=== PATIENT | female | born 1980 | race Hispanic/Latino ===

== ENCOUNTER 2019-04-11 15:45 | Inpatient (IN) | payer OTHER ==
[2019-04-11 16:49] LABS: #Lymphocytes 2.9 thou/uL (1.20-3.40); #Monocytes 0.6 thou/uL (0.11-0.59); #Neutrophils 8.4 thou/uL (1.40-6.50); %Basophils 0.3 % (0.0-1.0); %Eosinophils 0.3 % (0.0-10.0); %Monocytes 4.8 % (0.0-10.0); %Neutrophils 70.7 % (42.0-75.0); Hemoglobin 5.9 g/dL (12.0-16.0); Mean Corpuscular HGB CONC 32.2 g/dL (32.0-36.0); Mean Corpuscular Hemoglobin 24.3 pg (27.0-31.0); Mean Corpuscular Volume 75.3 fL (78.0-98.0); Mean Platelet Volume 8.8 fL (7.4-10.4); Platelet Count 320 thou/uL (130-400); RBC Distribution Width 17.8 % (11.5-14.5); Red Blood Cell (RBC) Count 2.41 mill/uL (4.20-5.40); White Blood Cell (WBC) Count 11.9 thou/uL (4.8-10.8)
[2019-04-11 17:06] LABS: BHCG - Serum Negative (NEGATIVE); Pregs Control Background? CLEAR/WHITE (CLR/WHITE); Pregs Control Bar Appear? YES (CONTROL BAR)
[2019-04-11 17:07] LABS: ALT (SGPT) 24 U/L (8-55); AST (SGOT) 17 U/L (5-34); Albumin 3.7 g/dL (3.5-5.0); Alkaline Phosphatase 53 U/L (40-150); Anion Gap 11 mmol/L (10-20); BUN (Urea Nitrogen) 9 mg/dL (7.0-18.7); Bilirubin, Total Less than 0.2 mg/dL (0.2-1.2); Calc. Creatinine Clearance 0 mL/min (70-130); Calcium 8.8 mg/dL (7.8-10.44); Carbon Dioxide 22 mmol/L (22-29); Chloride 107 mmol/L (98-107); Estimated GFR-MDRD Greater than 90; Globulin 2.7 g/dL (2.4-3.5); Glucose 113 mg/dL (70-105); Potassium 3.8 mmol/L (3.5-5.1); Protein, Total 6.4 g/dL (6.0-8.3); Sodium 136 mmol/L (136-145)
--- NOTE | 2019-04-11 19:07 | ULT ---
TRANSABDOMINAL AND TRANSVAGINAL PELVIC ULTRASOUND WITH GORDON SCALE, COLOR FLOW AND SPECTRAL DOPPLER IM AGIN04/11/19 HISTORY: 38-year-old female with vaginal bleeding. FINDINGS: The uterus measures 10.1 x 6.2 x 6.6 cm without focal mass or endometrial fluid. The endometrium vern ures 9 mm in thickness. The right ovary is not visualized. The left ovary measures 3.2 x 1.9 x 3.1 cm and demonstrates flow. There is a 1 cm cyst versus follicle in the left ovary. No free fluid is seen. IMPRESSION: No significant abnormalities are identified. POS: EDEL
--- NOTE | 2019-04-11 19:50 | PDOC.FPRHP ---
- History of Present Illness Chief Complaint: Vaginal bleeding, weakness, fatigue History of Present Illness: 38 yo with history of menorrhagia since her last . She had her last delivery in Sep of last year and has had heavy menstrual bleeding since. Recently she has become weak with exertion with occasional sob with exertion. She reports heavy uterine bleeding that was still uncontrolled with a depo shot q3m and OCPs, unknown type. She denies CP, syncope, palpitations, abdominal pain , fever, chills. ED Course: Pt had a CBC which showed Hgb of 5.4, she was given 1liter NS and has had 2U typed and crossed. Receiving 1st unit when seen. - History PMHx: None PSHx: CSx4 FHx:Mother hysterectomy for aub Social: denies alcohol, tobacco and drug use - Review of Systems General: reports: fatigue. denies: fever/chills Eyes: denies: vision changes ENT: denies: nasal congestion Respiratory: reports: exercise intolerance. denies: cough, shortness of breath Cardiovascular: denies: chest pain, palpitation, edema Gastrointestinal: denies: nausea, vomiting, diarrhea, constipation, abdominal pain, GI bleeding Musculoskeletal: denies: pain, tenderness Neurological: reports: weakness. denies: numbness, syncope - Vital signs BP: 141/80 HR: 97 RR: 18 Tmax: 99 Pox: 100% on RA Wt: 81kg - Physical Exam Constitutional: NAD, awake, alert and oriented, well developed HEENT: PERRLA, EOMI, conjunctiva clear, grossly normal vision, grossly normal hearing Neck: trachea midline Heart: RRR, normal S1/S2, no murmurs/rubs/gallops, no edema Lungs: CTAB, no respiratory distress, good air movement, no rales/rhonchi, no wheezing Abdomen: soft, non-tender, bowel sounds present Neurological: no focal deficit Skin: no rash/lesions, capillary refill <2 seconds Additional comment: exam: Normal vulva, uterus appropriate size, cervix soft, no CMT. FMR H&P: Results - Labs Result Diagrams: 04/11/19 16:32 04/11/19 16:32 Lab results: WBC 11.9 thou/uL (4.8-10.8) H 04/11/19 16:32 Hgb 5.9 g/dL (12.0-16.0) L* 04/11/19 16:32 Hct 18.2 % (36.0-47.0) L 04/11/19 16:32 MCV 75.3 fL (78.0-98.0) L 04/11/19 16:32 Plt Count 320 thou/uL (130-400) 04/11/19 16:32 Neutrophils % 70.7 % (42.0-75.0) 04/11/19 16:32 Sodium 136 mmol/L (136-145) 04/11/19 16:32 Potassium 3.8 mmol/L (3.5-5.1) 04/11/19 16:32 Chloride 107 mmol/L (98-107) 04/11/19 16:32 Carbon Dioxide 22 mmol/L (22-29) 04/11/19 16:32 BUN 9 mg/dL (7.0-18.7) 04/11/19 16:32 Creatinine 0.66 mg/dL (0.6-1.1) 04/11/19 16:32 Glucose 113 mg/dL (70-105) H 04/11/19 16:32 Calcium 8.8 mg/dL (7.8-10.44) 04/11/19 16:32 Total Bilirubin Less than 0.2 mg/dL (0.2-1.2) L 04/11/19 16:32 AST 17 U/L (5-34) 04/11/19 16:32 ALT 24 U/L (8-55) 04/11/19 16:32 Alkaline Phosphatase 53 U/L (40-150) 04/11/19 16:32 Serum Total Protein 6.4 g/dL (6.0-8.3) 04/11/19 16:32 Albumin 3.7 g/dL (3.5-5.0) 04/11/19 16:32 - Radiology Interpretation US - abdomen Status: report reviewed by me (9mm endometrial stripe) FMR H&P: A/P - Problem List (1) Symptomatic anemia Current Visit: Yes Status: Acute Code(s): D64.9 - ANEMIA, UNSPECIFIED (2) Abnormal uterine bleeding (AUB) Current Visit: Yes Status: Acute Code(s): N93.9 - ABNORMAL UTERINE AND VAGINAL BLEEDING, UNSPECIFIED - Plan 1) Symptomatic anemia - pt receiving 2U prbcs, tachycardia improving with first unit of blood - will repeat am cbc after 2u - admit to medical 2) AUB - will rx provera 20mg bid and lysteda 1300mg tid - cont monitoring Dispo: stable, will admit to medical and transfuse 2UPRBCs, repeat am cbc. Lysteda and provera for control of bleeding. FMR H&P: Upper Level - Plan Date/Time: 04/11/191948 I, [], have evaluated this patient and agree with findings/plan as outlined by internal controls analyst resident. Pertinent changes/additions are listed here. Addendum - Attending - Attending Attestation Date/Time: 04/11/19 2987 I personally evaluated the patient and discussed the management with Dr. Barbosa. 38 yo BF with persistant menorrhagia despite OCPs and DepoProvera. USG shows enlarged uterus but nonfocal. Admit for PRBC transfusion, Provera and TXA. I agree with the History, Examination, Assessment and Plan documented above with any addition or exceptions noted below.
[2019-04-11] MEDS ORDERED: Sodium Chloride 0.9% 1,000 ML IV SCH (22:15)
[2019-04-11] MEDS ORDERED: Ondansetron ODT 4 MG TAB SL PRN (22:15)
[2019-04-11] MEDS ORDERED: Ondansetron PF 4 MG/2 ML Vial IVP PRN (22:15)
[2019-04-11] MEDS ORDERED: Ondansetron ODT 4 MG TAB PO PRN (22:56)
[2019-04-11] MEDS ORDERED: Calcium Carbonate 500 MG ChewTAB PO PRN (22:56)
[2019-04-11] MEDS ORDERED: Acetaminophen 325 MG TAB PO PRN (22:56)
[2019-04-11] MEDS ORDERED: Tranexamic Acid 650 MG TAB PO SCH (23:15)
[2019-04-11] MEDS ORDERED: medroxyPROGESTERone Acetate 5 MG TAB PO SCH (23:15)
--- NOTE | 2019-04-12 00:17 | PDOC.FM ---
- Subjective Subjective: 38 yo F w/ AUB and symptomatic anemia. Pt doing well no acute events. 2nd unit prbcs still running. - Objective MAR Reviewed: Yes I&O: 04/10/19 04/11/19 04/12/19 06:59 06:59 06:59 Intake Total 0 Balance 0 Result Diagrams: 04/11/19 16:32 04/11/19 16:32 Phys Exam - Physical Examination Constitutional: NAD HEENT: PERRLA, sclera anicteric Neck: no JVD Respiratory: no wheezing, no rales, no rhonchi, clear to auscultation bilateral Cardiovascular: RRR, no significant murmur, no rub Gastrointestinal: soft, non-tender, no distention, positive bowel sounds Musculoskeletal: no edema Neurological: non-focal, moves all 4 limbs Psychiatric: normal affect Skin: normal turgor -: Normal color Dx/Plan (1) Symptomatic anemia Code(s): D64.9 - ANEMIA, UNSPECIFIED Status: Acute (2) Abnormal uterine bleeding (AUB) Code(s): N93.9 - ABNORMAL UTERINE AND VAGINAL BLEEDING, UNSPECIFIED Status: Acute - Plan Plan: 1) Symptomatic anemia - transfuse 2U prbcs, recheck hemagram 4 hrs post transfusion. 2) AUB: human services supervisor and txa ordered vss and tachycardia resolved Addendum - Attending - Attending Attestation Date/Time: 04/12/19 9023 I personally evaluated the patient and discussed the management with Dr. Barbosa. I agree with the Assessment and Plan documented above.
[2019-04-12] MEDS ORDERED: PHENYLEPHRINE-NS 100 MCG/ML 10 ML SYRINGE ONE (07:40)
[2019-04-12] MEDS ORDERED: Lidocaine 1% PF 5 ML VIAL ONE (07:40)
[2019-04-12] MEDS ORDERED: Rocuronium Bromide 10 MG/ML (10ML VIAL) ONE (07:40)
[2019-04-12] MEDS ORDERED: Ketorolac Tromethamine 30 MG/ML VIAL ONE (07:40)
[2019-04-12] MEDS ORDERED: Dexamethasone 20 MG/5 ML VIAL ONE (07:40)
[2019-04-12] MEDS ORDERED: PROPOFOL 200 MG/20 ML VIAL ONE (07:40)
[2019-04-12] MEDS ORDERED: Glycopyrrolate 0.2 MG/ML 5 ML SYRINGE ONE (07:40)
[2019-04-12] MEDS ORDERED: Ondansetron PF 4 MG/2 ML Vial ONE (07:40)
[2019-04-12 07:58] LABS: #Lymphocytes 2.7 thou/uL (1.20-3.40); #Monocytes 0.6 thou/uL (0.11-0.59); #Neutrophils 4.4 thou/uL (1.40-6.50); %Basophils 0.3 % (0.0-1.0); %Eosinophils 0.6 % (0.0-10.0); %Lymphocytes 35.1 % (21.0-51.0); %Monocytes 7.2 % (0.0-10.0); %Neutrophils 56.8 % (42.0-75.0); Hemoglobin 7.3 g/dL (12.0-16.0); Mean Corpuscular Hemoglobin 26.6 pg (27.0-31.0); Mean Corpuscular Volume 80.7 fL (78.0-98.0); Mean Platelet Volume 9.8 fL (7.4-10.4); Platelet Count 128 thou/uL (130-400); RBC Distribution Width 17.8 % (11.5-14.5); Red Blood Cell (RBC) Count 2.73 mill/uL (4.20-5.40); White Blood Cell (WBC) Count 7.7 thou/uL (4.8-10.8)
[2019-04-12] MEDS: Tranexamic Acid 650 MG TAB PO SCH ×2 (08:15→17:18)
[2019-04-12] MEDS ORDERED: medroxyPROGESTERone Acetate 5 MG TAB PO SCH (09:00)
--- NOTE | 2019-04-12 12:51 | PDOC.EVN ---
Event Note - Event Note Event Note: Pt is a 38yo female admitted for symptomatic anemia and vaginal bleeding which has improved some on progestin and txa but has not resolved. She received 2units prbcs upon admission. Pt continues to bleed. Nurse reports blood loss of 400cc over a 12hr period. I have a repeat cbc ordered but not drawn yet. Pt reports a h/o normal predictable periods since before her last . since the delivery of her last child 2018 pt has had heavy menstrual flow that has been unsuccessfully managed with ocp. Pt was started on depo provera 3days prior to presentation. reviewing the us shows a lining of 9mm with a mildly enlarged uterus with out evidence of fibroids. We have discussed the potential benefit for a endometrial ablation with a 30-50% rate of amenorrhea and 80-90% satisfaction. Pt already has a btl done at time of her last . I have discontinued progestin therapy as depo is on board and have added prometrium 2.5mg 4xday. Pt has expressed a desire for hysterectomy. I have recommended an endometrial ablation with tissue sampling as a next step in usp management of the heavy bleeding. If that were not to prove successful a hysterectomy would be a logical next step for definitive management. addendum: 04/12/19 1430 hgb/hct back 6.6/19.6. Will be getting a third unit prbc's Attempted endometrial biopsy without success. Please see procedure note. With the rate of continued bleeding and need for more blood I believe it is in the pt best interest to move toward Hysteroscopy/D&C/Endometrial ablation. I have discussed benefit/risks/and alternatives including the risk of bleeding, infection, perforation, damage to surrounding organs, need for hysterectomy acutely. Pt has provided written informed consent and desires to proceed. I have spoken with anesthesia. Pt last ate at 12. case not emergent but would like to proceed before more blood needed for transfusion.
[2019-04-12 14:02] LABS: Hemoglobin 6.6 g/dL (12.0-16.0); Mean Corpuscular HGB CONC 33.8 g/dL (32.0-36.0); Mean Corpuscular Hemoglobin 26.9 pg (27.0-31.0); Mean Corpuscular Volume 79.7 fL (78.0-98.0); Mean Platelet Volume 8.8 fL (7.4-10.4); Platelet Count 212 thou/uL (130-400); RBC Distribution Width 17.9 % (11.5-14.5); Red Blood Cell (RBC) Count 2.47 mill/uL (4.20-5.40)
--- NOTE | 2019-04-12 14:28 | PDOC.OP ---
Operative Note - Operative Note Operative Note: PRE-OP DIAGNOSIS: Abnormal Uterine Bleeding POST-OP DIAGNOSIS: Same PROCEDURE: Attempted Endometrial biopsy Performing Physician: Shoshana Tse MD PGY-2 Supervising Physician: Dr Zhong PROCEDURE: Vaginal speculum was inserted, and the cervix was visualized. The cervix was cleansed with antiseptic solution. Attempted to insert device through the cervical canal and into the uterine cavity A tenaculum was then placed on the anterior lip of the cervix. Again attempted to insert device. A uterine sound was successfully inserted. Again attempted to insert biopsy catheter without success. Cervix appearance was normal and there was blood pooling in the vaginal canal coming from the os. The speculum was then removed. Patient tolerated the procedure well. Plan: Discussed with the patient D&C prior to ablation and the risks associated with it. Patient was agreeable to proceed. 1200 Hgb 6.6, decreased from 7.3 this AM. She has already received 2U pRBCs. Will transfuse 1U pRBCs now. Plan for scheduled D&C and ablation later today.
[2019-04-12] MEDS ORDERED: Midazolam HCl 2 mg/2 ml Vial ONE (15:08)
[2019-04-12] MEDS ORDERED: Fentanyl 100 MCG/2 ML VIAL ONE (15:08)
[2019-04-12] MEDS ORDERED: HYDROmorphone 0.5 MG/0.5 ML SYRINGE ONE (15:08)
[2019-04-12] MEDS ORDERED: Lidocaine 1% (PF) 30 ML VIAL ONE (16:01)
[2019-04-12] MEDS ORDERED: Silver Nitrate Application 1 EACH ONE (18:00)
[2019-04-12] MEDS ORDERED: Promethazine HCl 25 MG/ML VIAL SLOW IVP PRN (18:29)
[2019-04-12] MEDS ORDERED: Ondansetron HCl/PF 4 MG/2 ML Vial IVP PRN (18:29)
[2019-04-12] MEDS ORDERED: Promethazine HCl 25 MG/ML VIAL IM PRN (18:29)
[2019-04-12] MEDS ORDERED: HYDROmorphone 2 MG/ML VIAL SLOW IVP PRN (18:29)
[2019-04-12] MEDS ORDERED: PACU-Morphine 4MG/ML VIAL SLOW IVP PRN (18:29)
[2019-04-12] MEDS ORDERED: Ondansetron PF 4 MG/2 ML Vial IVP PRN (19:43)
[2019-04-12] MEDS ORDERED: Morphine 4 MG/ML VIAL SLOW IVP SCH (19:45)
[2019-04-12 22:53] LABS: Hemoglobin 9.3 g/dL (12.0-16.0); Mean Corpuscular HGB CONC 33.8 g/dL (32.0-36.0); Mean Corpuscular Hemoglobin 27.8 pg (27.0-31.0); Mean Corpuscular Volume 82.3 fL (78.0-98.0); Mean Platelet Volume 8.8 fL (7.4-10.4); Platelet Count 226 thou/uL (130-400); RBC Distribution Width 17.4 % (11.5-14.5); Red Blood Cell (RBC) Count 3.34 mill/uL (4.20-5.40); White Blood Cell (WBC) Count 12.5 thou/uL (4.8-10.8)
[2019-04-12] MEDS: Ketorolac Tromethamine 30 MG/ML VIAL IVP SCH (23:35)
--- NOTE | 2019-04-13 01:04 | OP ---
DATE OF PROCEDURE: 04/12/2019 PREOPERATIVE DIAGNOSES: 1. Abnormal uterine bleeding with symptomatic anemia requiring blood transfusion. 2. Incarceration. POSTOPERATIVE DIAGNOSES: 1. Abnormal uterine bleeding with symptomatic anemia requiring blood transfusion. 2. Incarceration. PROCEDURES PERFORMED: Hysteroscopy with dilatation and curettage and endometrial ablation. ANESTHESIA: General. COMMERCIAL RELIEF DRIVER: Dr. Tse, resident. COMPLICATIONS: None. SPECIMENS: Endometrial curettings to Pathology. FINDINGS: Uterus sounded to 11 cm with a cervical length of 4.5 cm. Uterine cavity 6.5 cm. Uterine cavity; both ostia were visible. Cavity appeared to have fluffy endometrium. No significant lesions identified. ESTIMATED BLOOD LOSS: Less than 50 mL. FLUID BALANCE: 1000 mL fluid deficit of normal saline. INDICATIONS FOR PROCEDURE: Ms. Any Herrera is a 38-year-old female, who came to the emergency room from [facility] with complaints of shortness of breath and weakness and was found to have significant symptomatic anemia with heavy vaginal bleeding. She was placed on tranexamic acid (TXA) and progestin, and was given 2 units of packed red blood cells prior to my arrival. Upon my arrival to my shift and evaluation of the patient, it was reported that the patient had continued to have bleeding over the [facility] shift lead of about 400 mL and another about 200 mL into the morning shift. Repeat CBC showed hemoglobin of 6.6 down from 7.3 after 2 units. She was given another unit of blood. With medical therapy not giving adequate control, decision was made to take the patient to the operating room upon counseling with her for a hysteroscopy, D and C, and endometrial ablation. We counseled the patient to the risks and benefits of the procedure with a goal of significantly reducing vaginal bleeding with an amenorrheic rate of about 30% to 50% and about 80% to 90% satisfaction. We counseled her this is an alternative to hysterectomy that is much less invasive and lower risk. We counseled the risk of bleeding, infection, damage to bowel or bladder, and perforation of the uterus. The patient expressed understanding and desired to proceed. DESCRIPTION OF PROCEDURE: She was placed in a dorsal lithotomy position in [facility] after being placed under general anesthesia. She was prepared and draped in the normal sterile fashion. Attention was placed vaginally. With aid of an operative speculum, the cervix was identified and grasped with a single-tooth tenaculum. The uterus was sounded to 11 cm, and cervical length was estimated to be at 4.5 cm, making the uterine cavity 6.5 cm, which are the upper limits of the Priya endometrial device. The cervix was then dilated to accommodate a 5 mm hysteroscope with a 0-degree camera. Upon entry into the uterine cavity with normal saline as the filling fluid, we were able to see both tubal ostia and an endometrial cavity that appeared to be fairly normal in appearance. There was some fluffy endometrium visible, but no significant lesions identified. With this part completed, a D and C was then performed on the endometrium for sampling and pathology. After this was collected and sent to Pathology for review, the Priya endometrial device was then utilized. Steps were taken as described. The device cavity length was set at 6.5 cm. Upon initial entry into the uterine cavity and all parameters were within acceptable ranges, the device was then started and noted to fail its interval to integrity test. Upon further inspection, it was believed that the cervix was losing CO2 gas. With the use of a ring forceps gently placed over the cervix, the repeat of the integrity test demonstrated good tight seal. I then proceeded for the 120-second ablation. Upon completion of the ablation, reinspection of the endometrial cavity appeared to have a good uterine monica with view of the hysteroscope. Once the procedure was completed, the single-tooth tenaculum was then removed from the anterior lip and a stick of silver nitrate was used for hemostasis. There was a total fluid deficit of about 1000 mL to the best of our ability to measure given some complication with the hysteroscopic fluid measuring device. With the procedure completed and good hemostasis noted, the patient was taken out of lithotomy position and taken to Recovery in stable condition. Job ID: [id number]
[2019-04-13] MEDS: Ketorolac Tromethamine 30 MG/ML VIAL IVP SCH (06:46)
--- NOTE | 2019-04-13 10:19 | PRG ---
DATE OF SERVICE: 04/13/2019 SUBJECTIVE: The patient is a 38-year-old incarcerated female, who was admitted to the hospital for significant vaginal bleeding and symptomatic anemia. She is now status post 3 units of packed red blood cells. Due to failed medical management, the patient went yesterday for a hysteroscopy, D and C, and Priya ablation of the uterus of the endometrium. Since then, the patient has had no vaginal bleeding. Reports this morning that she is feeling much better. She is having little pain, on Toradol. OBJECTIVE: VITAL SIGNS: Blood pressure 125/61, temperature 98.1, pulse of 86, respiratory rate of 20, and saturating 98% on room air. GENERAL: She appears to be in no acute distress. She is alert and oriented, cooperative and pleasant to interact with. ABDOMEN: Soft. LABORATORY DATA: Her hemoglobin last night after her 3rd unit of blood was 9.3, hematocrit 27.5, and platelets of 226,000. ASSESSMENT AND PLAN: The patient is a 38-year-old female postop day 1, status post hysteroscopy, D and C and endometrial ablation with cessation of vaginal bleeding and resolution of her anemia with 3 units of packed red blood cells. The patient is being transitioned from Toradol to ibuprofen today. We have been reported that medical at the longterm is unavailable today being . The patient will be re-evaluated this afternoon if she is requiring little to no medication for pain control. She can be discharged this afternoon. Otherwise, plan will be tomorrow morning. Job ID: [id number]
[2019-04-13] MEDS: Ibuprofen 600 MG TAB PO PRN ×2 (10:56→17:04)
[2019-04-14] MEDS: Ibuprofen 600 MG TAB PO PRN ×2 (00:46→09:17)
--- NOTE | 2019-04-14 07:09 | PDOC.EVN ---
Event Note - Event Note Event Note: POD#1 ablation. No c/o. VSS AF Bleeding minimal. Plan; Discharge, f/u [facility] in 2 weeks, Precautions, rx for Motrin 800 mg 325 on chart.
[2019-04-14 07:39] VITALS: BP 94/50; TEMP 98.5
--- NOTE | 2019-04-17 06:47 | PQF ---
TANESHA ORTEGA BEN MD [id number] [address] [place] [address] [id number] CLINICAL DOCUMENTATION CLARIFICATION FORM: POST DISCHARGE Addendum to original discharge summary date: ____ Late entry note date: __ DATE: 04-17-2019 ATTN:Moises Gomes Please exercise your independent, professional judgment in responding to the clarification form. Clinical indicators are provided on the bottom of this form for your review Can you please specify the type of anemia the patient actually has? Please check appropriate box(s): [ X ] Acute blood loss anemia [ ] Post-op anemia related to acute blood loss [ ] Anemia: [ ] Iron deficiency [ ] Nutritional [ ] Other diagnosis please specify: [ ] Unable to determine For continuity of documentation, please document condition throughout progress notes and discharge summary. Thank You. CLINICAL INDICATORS : H&P / pg1 Dr. Barbosa Vaginal Bleeding, weakness, fatigue H&P 04/[address] Barbosa she had heavy menstrual bleeding H&P 04/[address] Barbosa Hgb of 5.4 H&P 04/[address] Barbosa Symptomatic anemia OP Note 04/[address] Reese complaints of shortness of breath and weakness and was found to have significant symptomatic anemia with heavy vaginal bleeding Event note 04/[address] Kaur bleeding minimal RISK FACTORS: HP Dr. Barbosa- CS X4 HP Dr. Barbosa- mother hysterescopy for AUB TREATMENTS: HP Dr. Barbosa-Blood transfusion OP Note Dr. Reese- Hysteroscopy with dilation and curettage and endometrial ablation MAR- IV fluids (This form is maintained as a part of the permanent medical record) 2014 [employer]. All Rights Reserved [email or web address] [not provided] MTDD
--- NOTE | 2019-04-18 22:10 | EKG ---
Test Reason : Blood Pressure : / mmHG Vent. Rate : 113 BPM Atrial Rate : 113 BPM P-R Int : 126 ms QRS Dur : 076 ms QT Int : 324 ms P-R-T Axes : 044 012 014 degrees QTc Int : 444 ms Sinus tachycardia Cannot rule out Anterior infarct , age undetermined Abnormal ECG Confirmed by CAMMIE REY D.O. ([id number]), manuscript editor MOOK GUTIERREZ ([id number]) on 04/18/2019 10:10:06 PM Referred By: Confirmed By:CAMMIE REY D.O.
== END 2019-04-14 09:25 | DRG 742 ==
LOC: ERS 15:45 → 3SE 18:15
PROVIDERS: ADMIT Obstetrics & Gynecology; ATTEND Obstetrics & Gynecology
PROC: 0U5B8ZZ Destruction of Endometrium, Via Natural or Artificial Opening Endoscopic (ICD-10-PCS; principal; 2019-04-12)
PROC: 30233N1 Transfusion of Nonautologous Red Blood Cells into Peripheral Vein, Percutaneous Approach (ICD-10-PCS; 2019-04-12)
PROC: 0UJHXZZ Inspection of Vagina and Cul-de-sac, External Approach (ICD-10-PCS; 2019-04-12)
PROC: 0UDB8ZZ Extraction of Endometrium, Via Natural or Artificial Opening Endoscopic (ICD-10-PCS; 2019-04-12)
DX: N93.9 Abnormal uterine and vaginal bleeding, unspecified (principal); D62 Acute posthemorrhagic anemia; O34.211 Maternal care for low transverse scar from previous cesarean delivery; Z88.2 Allergy status to sulfonamides
CPT/HCPCS: 36415; 36430; 76856; 80053; 84703; 85025; 86850; 86900; 86901; 87591; 88305; 93005; 96360; J1100; J1170; J1885; J2001; J2250; J2270; J2405; J2704; J3010; P9016; Q0162

== ENCOUNTER 2019-09-01 11:30 | Inpatient (IN) | payer OTHER ==
[~2019-09-01 11:30] MED LIST: Dexamethasone 20 MG/5 ML VIAL ONE; Glycopyrrolate 0.2 MG/ML 5 ML SYRINGE ONE; Ketorolac Tromethamine 30 MG/ML VIAL ONE; Lidocaine 1% PF 5 ML VIAL ONE; Ondansetron PF 4 MG/2 ML Vial ONE; PHENYLEPHRINE-NS 100 MCG/ML 10 ML SYRINGE ONE; PROPOFOL 200 MG/20 ML VIAL ONE; Rocuronium Bromide 10 MG/ML (10ML VIAL) ONE; ePHEDrine/0.9% NaCl/PF SYRINGE 50 mg/10 ml ONE
[2019-09-01] MEDS ORDERED: CeleCOXIB 100 MG CAP ONE (12:48)
[2019-09-01] MEDS ORDERED: Gabapentin 300 MG CAP ONE (12:48)
[2019-09-01] MEDS ORDERED: Famotidine/PF 20 mg/2ml Vial ONE (12:48)
[2019-09-01 13:04] LABS: #Monocytes 0.4 thou/uL (0.11-0.59); #Neutrophils 3.3 thou/uL (1.40-6.50); %Basophils 0.3 % (0.0-1.0); %Eosinophils 0.8 % (0.0-10.0); %Lymphocytes 34.4 % (21.0-51.0); %Monocytes 6.5 % (0.0-10.0); %Neutrophils 58.1 % (42.0-75.0); Mean Corpuscular HGB CONC 31.1 g/dL (32.0-36.0); Mean Corpuscular Hemoglobin 24.1 pg (27.0-31.0); Mean Corpuscular Volume 77.4 fL (78.0-98.0); Platelet Count 269 thou/uL (130-400); RBC Distribution Width 18.5 % (11.5-14.5); Red Blood Cell (RBC) Count 5.41 mill/uL (4.20-5.40); White Blood Cell (WBC) Count 5.7 thou/uL (4.8-10.8)
[2019-09-01] MEDS ORDERED: Lidocaine 1% w/Epinephrine 1:100K 20 ML VIAL ONE (13:18)
[2019-09-01] MEDS ORDERED: Bupivacaine PF 0.5% 30 ML VIAL ONE (13:18)
[2019-09-01] MEDS ORDERED: Fentanyl 100 MCG/2 ML VIAL ONE (14:02)
[2019-09-01] MEDS ORDERED: Midazolam HCl 2 mg/2 ml Vial ONE (14:02)
[2019-09-01] MEDS ORDERED: HYDROmorphone 0.5 MG/0.5 ML SYRINGE ONE (14:03)
[2019-09-01] MEDS ORDERED: Lidocaine 2% Jelly 5 ML TUBE ONE (14:03)
[2019-09-01] MEDS ORDERED: Fentanyl 100 MCG/2 ML VIAL SLOW IVP PRN (16:32)
[2019-09-01] MEDS ORDERED: Simethicone Chewable 80 MG TAB PO PRN (16:32)
[2019-09-01] MEDS ORDERED: Zolpidem Tartrate 5 MG TAB PO PRN (16:32)
[2019-09-01] MEDS ORDERED: diphenhydrAMINE 25 MG CAP PO PRN (16:32)
[2019-09-01] MEDS ORDERED: Bisacodyl 10 MG SUPP PR PRN (16:32)
[2019-09-01] MEDS ORDERED: Promethazine HCl 25 MG/ML VIAL IM PRN ×2 (16:32→16:47)
[2019-09-01] MEDS ORDERED: Ondansetron PF 4 MG/2 ML Vial IVP PRN (16:32)
[2019-09-01] MEDS ORDERED: HYDROcodone/Acetaminophen 5/325 mg Tablet PO PRN ×2 (16:32)
[2019-09-01] MEDS ORDERED: HYDROmorphone 2 MG/ML VIAL SLOW IVP PRN (16:47)
[2019-09-01] MEDS ORDERED: Promethazine HCl 25 MG/ML VIAL SLOW IVP PRN (16:47)
[2019-09-01] MEDS ORDERED: Ondansetron HCl/PF 4 MG/2 ML Vial IVP PRN (16:47)
[2019-09-01] MEDS ORDERED: PACU-Morphine 4MG/ML VIAL SLOW IVP PRN (16:47)
[2019-09-01] MEDS: Ketorolac Tromethamine 30 MG/ML VIAL IVP SCH (18:29)
[2019-09-01] MEDS: Sodium Chloride 0.9% 1,000 ML IV SCH (18:31)
[2019-09-02] MEDS: Ketorolac Tromethamine 30 MG/ML VIAL IVP SCH (00:09)
[2019-09-02] MEDS: Sodium Chloride 0.9% 1,000 ML IV SCH ×2 (05:17→08:06)
[2019-09-02] MEDS ORDERED: Ibuprofen 800 MG TAB PO SCH (06:00)
[2019-09-02 06:36] LABS: Hemoglobin 11.7 g/dL (12.0-16.0); Mean Corpuscular Volume 78.3 fL (78.0-98.0); Mean Platelet Volume 9.4 fL (7.4-10.4); Platelet Count 235 thou/uL (130-400); RBC Distribution Width 18.1 % (11.5-14.5); Red Blood Cell (RBC) Count 4.68 mill/uL (4.20-5.40); White Blood Cell (WBC) Count 8.5 thou/uL (4.8-10.8)
[2019-09-02 08:19] VITALS: BP 110/60
[2019-09-02 08:28] VITALS: TEMP 98.4
--- NOTE | 2019-09-02 08:59 | PDOC.EVN ---
Event Note - Event Note Event Note: Event Note: PT doing well on post op day 1 s/p YOLA JACKSON. Pain is well controlled. She has minimal vaginal bleeding. Pt had castle removed 2 hours ago and is ambulatory. She is about to attempt to void. She has been passing gas. She has been eating and drinking well. She has no chest pain or shortness of breath. VSS,Afebrile. PT resting very comfortable. She was up and ambulatory with steady gait. She has normal respiratory effort. Abdomen is soft with dry intact incisions. LE has no edema. Pt is neurologically at baseline. H/H are stable. Pt s/p YOLA JIMÉNEZ RO. Plan to discharge this am after voiding trial passed as patient is doing very well Dr. Alexandre has sent out home prescriptions. Discharge planning discussed. She will follow up with our office in 2 weeks and call for any concens. .
[2019-09-02] MEDS ORDERED: Ferrous Sulfate 325 MG TAB PO SCH (09:00)
--- NOTE | 2019-09-03 13:56 | OP ---
DATE OF PROCEDURE: 09/01/2019 PREOPERATIVE DIAGNOSES: 1. Menorrhagia to anemia. 2. Pelvic pain. POSTOPERATIVE DIAGNOSES: 1. Menorrhagia to anemia. 2. Pelvic pain. 3. Endometriosis. PROCEDURES PERFORMED: Robotic-assisted total laparoscopic hysterectomy, left salpingo-oophorectomy, and right salpingectomy. ANESTHESIA: General endotracheal. CONSTRUCTION SECRETARY SURGEON: Sapphire Cummings. COMPLICATIONS: None. DRAINS: Hendrix catheter. PATHOLOGY: Uterus, cervix, bilateral fallopian tubes, and left ovary. ESTIMATED BLOOD LOSS: 100 mL. IVF: 1200 mL crystalloid. URINE OUTPUT: 85 mL clear urine. FINDINGS: Uterus approximately 9-week size. Normal-appearing fallopian tubes bilaterally. Bilateral ovaries had endometriotic blackened implants on them and were adherent to the pelvic sidewall bilaterally. Ureters and bladder were intact and visualized throughout the case, and there was excellent hemostasis following the completion of the surgery. DESCRIPTION OF PROCEDURE: The patient was taken to the operating room, where general anesthesia was obtained without difficulty. The patient was prepped and draped in a sterile fashion in a dorsal lithotomy position. After a time-out was performed, a speculum was placed in the vagina. The Hendrix catheter was placed in the bladder. The anterior lip of the cervix was grasped with single-tooth tenaculum. The cervix was then dilated with Micah dilators and the uterus then sounded to 9 cm. The ELSY manipulator was assembled with a 3.5 cm colpotomizer ring and 8 cm tip. The tip was inserted into the uterine fundus and the colpotomizer ring was advanced to fit snugly around the cervix. The instruments removed out of the vagina. Legs were placed in low lithotomy. Attention was turned to the abdomen. 0.5% Marcaine with epinephrine was infiltrated into the umbilicus and a 12 mm skin incision was made. The Veress needle was passed into the abdomen, noting an opening pressure of 3 mmHg. Pneumoperitoneum was obtained without difficulty. The Veress needle was removed. The 12 mm trocar was advanced into the abdomen and confirmed placement with robotic camera. The steep Trendelenburg was obtained. There were omental adhesions to the lower anterior abdominal wall secondary to the patient's 4 prior C-sections. The right and left lower quadrant 8 mm robotic trocars were placed under direct visualization after infiltrating with anesthetic. Right upper quadrant 11 mm bookkeeping assistant port was also placed under direct visualization after infiltrating with anesthetic. The robot was then docked. The right robotic arm contained monopolar scissors, left robotic arm contained a fenestrated bipolar. The omental adhesions were taken down sharply with the scissors and hemostasis was achieved with the fenestrated. The endometriosis was noted to the bilateral ovaries as well as the adherence to the pelvic sidewall. The right fallopian tube was grasped and elevated and the mesosalpinx was cauterized and then incised with the scissors. The fallopian tube was then incised in the medial portion and removed out of the abdomen. The ovary was carefully dissected off the peritoneum on the pelvic sidewall to free it up and further evaluate. This ovary appeared to be less diseased with endometriosis. Therefore, decision was made to leave the patient's right ovary secondary to her young age. The utero-ovarian was then cauterized on the right multiple times with the fenestrated and incised with the scissors. The round ligament was incised after cautery with the scissors as well. The posterior leaf of the broad ligament was dropped down to the level of the uterosacral, incising with the scissors and dissecting off the retroperitoneum with the fenestrated bluntly. The anterior leaf of the broad ligament was also dropped down to the internal cervical os. The patient had had 4 prior C-sections. Therefore, there were adhesions of the bladder to the lower uterine segment. The uterine vessels were skeletonized with the scissors and there were very apparent adhesions to the lower uterine segment and these were seen through clearly after undermining with the fenestrated and then incised with the scissors sharply. The bladder was then backfilled with saline to note the boundaries of the actual bladder mucosa. This was distended adequately in order to visualize this. The bladder was then decompressed and the bladder flap was carefully created after identifying a clear window very close to the uterus and incising sharply without cautery on the adhesion as well as the peritoneum. Attention was then turned to the left side. The left ovary had more endometriosis present on it and decision was made to remove the left ovary. This was adherent to the pelvic sidewall just overlying the ureter. Therefore, a clear area free of vessel and ureter was identified and the peritoneum was incised. The ovary was then able to be somewhat peeled off the peritoneum. However, there were some areas of denser adherence that required dissecting out the ureter, and the ureter was visible during this entire process. The ovary was then freed up and the ovary and fallopian tube were elevated. The IP was identified. The ureter was noted at the pelvic brim medially. The IP was cauterized multiple times and incised with the scissors and the meso-ovarian was also cauterized and incised down to the round ligament that was cauterized and incised and the posterior leaf of the broad ligament was dropped down to the level of the uterosacral and the ureter was then dissected away. The ureter was noted to come somewhat medially toward the uterine vessel as it crossed underneath the uterine artery and this was dissected out directly out of the retroperitoneum to visualize. At that point, the anterior leaf of the broad ligament was also dropped down and the uterine vessels were skeletonized sharply. The bladder flap was then further created carefully. The bladder was distended again, noting no inadvertent injury to the bladder. Once the bladder had been taken down below the level of colpotomizer ring, the pubocervical fascia was scored with the scissors and then bluntly dissected down any remaining adventitial fibers below the level of the colpotomizer ring. The uterine vessels were then cauterized multiple times bilaterally and then incised. Hemostasis was achieved with the fenestrated. The colpotomy was performed and the uterus was then removed into the vagina. The vaginal cuff was then irrigated copiously. The scissors were traded out for the needle tow bar driver and the hemostasis was achieved of the vaginal cuff as well as the uterine pedicles. The cuff was then closed with a 2-0 barbed STRATAFIX suture in a running fashion and ran back for 2nd layer with excellent closure incorporating vaginal mucosa in each bite and posterior peritoneum as well. The needle was removed out of the abdomen. The bladder was again backfilled and noted to be free of any injuries. The ureters were noted vermiculating in the sidewall, and low pressure check was performed and hemostasis was noted to be excellent. All instruments were removed out of the abdomen. The robot was undocked. Pneumoperitoneum was released. The fascia of the camera port was closed with a 0 Vicryl in a [id number] fashion. The skin was closed with 4-0 Monocryl in a subcuticular fashion. Dermabond was applied. The uterus was removed out of the vagina. The vaginal cuff was checked from below and noted to be hemostatic with excellent closure. All instruments were removed out of the vagina. The patient tolerated the procedure well. Sponge, lap, and needle counts were correct x2. The patient was taken to recovery room in stable condition. The patient received Ancef 2 g prior to procedure. Job ID: [id number]
== END 2019-09-02 11:00 | DRG 743 ==
LOC: SURG A 11:30 → 3SE 18:25
PROVIDERS: ADMIT Student in an Organized Health Care Education/Training Program; ATTEND Student in an Organized Health Care Education/Training Program
PROC: 0UT94ZZ Resection of Uterus, Percutaneous Endoscopic Approach (ICD-10-PCS; principal; 2019-09-01)
PROC: 0UT04ZZ Resection of Right Ovary, Percutaneous Endoscopic Approach (ICD-10-PCS; 2019-09-01)
PROC: 0UT54ZZ Resection of Right Fallopian Tube, Percutaneous Endoscopic Approach (ICD-10-PCS; 2019-09-01)
PROC: 8E0W4CZ Robotic Assisted Procedure of Trunk Region, Percutaneous Endoscopic Approach (ICD-10-PCS; 2019-09-01)
DX: N92.0 Excessive and frequent menstruation with regular cycle (principal); D64.9 Anemia, unspecified; N93.9 Abnormal uterine and vaginal bleeding, unspecified; N80.1 Endometriosis of ovary
CPT/HCPCS: 36415; 85025; 85027; 86850; 86900; 86901; 88307; J0690; J1100; J1170; J1885; J2001; J2250; J2405; J2704; J3010; S0020; S0028